=== PATIENT | male | born 1955 | race Caucasian/White ===

== ENCOUNTER → 2017-12-10 | Outpatient (CLI) | payer OTHER ==
--- NOTE | 2017-12-10 17:31 | 2DMMODE ---
[place] [address] 2 D/M-MODE ECHOCARDIOGRAM Name: SARAH CASTANEDA Room: [facility]#: [id number] Admission: 12/10/17 Attend Phys: Tete Johnson, Discharge: Date of : 59 Date of Service: 12/10/17 1731 Report #: [id number] THIS REPORT FOR: //name// APPROVED REPORT Study performed: 12/10/2017 15:13:41 EXAM: Comprehensive 2D, Doppler, and color-flow Echocardiogram Patient Location: Out-Patient Status: routine BSA: 1.63 HR: 97 bpm BP: 120/68 mmHg Other Information Study Quality: Technically Limited Technically limited study due to ribs close together. Indications Chemo 2D Dimensions LVEF(%): 77.72 (>50%) IVSd: 10.77 (7-11mm) LVOT Diam: 20.62 (18-24mm) LVDd: 35.89 mm PWd: 9.32 (7-11mm) Ascending Ao: 30.28 (22-36mm) LVDs: 19.57 (25-40mm) Aortic Root: 21.63 mm Alfred's LVEF: 77.72 % Volumes Left Atrial Volume (Systole) LA ESV Index: 6.80 mL/m2 Aortic Valve AoV Peak Theron.: 0.71 m/s AO Peak Gr.: 2.01 mmHg LVOT Max P.59 mmHg AO Mean Gr.: 1.20 mmHg LVOT Mean P.98 mmHg LVOT Max V: 0.63 m/s AO V2 VTI: 8.70 cm LVOT Mean V: 0.46 m/s MIKAL (VTI): 4.44 cm2 LVOT V1 VTI: 11.58 [place] [address] 2 D/M-MODE ECHOCARDIOGRAM Name: SARAH CASTANEDA Room: [facility]#: [id number] Admission: 12/10/17 Attend Phys: Tete Johnson, Discharge: Date of : 59 Date of Service: 12/10/17 1731 Report #: [id number] E/A Ratio: 0.44 MV Decel. Time: 66.30 ms MV E Max Theron.: 0.26 m/s MV PHT: 19.23 ms MVA (PHT): 11.44 cm2 TDI E/Lateral E': 4.33 E/Medial E': 4.33 Medial E' Theron.: 0.06 m/s Lateral E' Theron.: 0.06 m/s Pulmonary Valve PV Peak Theron.: 0.64 m/s PV Peak Gr.: 1.62 mmHg Left Ventricle The left ventricle is normal size. There is normal LV segmental wall motion. There is normal left ventricular wall thickness. Left ventricular systolic function is normal. The left ventricular ejection fraction is within the normal range. LVEF is 55-60%. Grade I - abnormal relaxation pattern. Right Ventricle The right ventricle is normal size. The right ventricular systolic function is normal. Atria The left atrium size is normal. The right atrium size is normal. Aortic Valve Mild aortic valve sclerosis. No aortic regurgitation is present. There is no aortic valvular stenosis. Mitral Valve The mitral valve is normal in structure. There is no mitral valve regurgitation noted. No evidence of mitral valve stenosis. Tricuspid Valve The tricuspid valve is normal in structure. There is no tricuspid valve regurgitation noted. Pulmonic Valve The pulmonary valve is normal in structure. There is no pulmonic valvular regurgitation[place] [address] 2 D/M-MODE ECHOCARDIOGRAM Name: CASTANEDASARAH Peña Room: [facility]#: [id number] Admission: 12/10/17 Attend Phys: Tete Johnson, Discharge: Date of : 59 Date of Service: 12/10/17 1731 Report #: [id number] The aortic root is normal in size. IVC is normal in size and collapses with >50% inspiration Pericardium There is no pericardial effusion. <Conclusion> The left ventricle is normal size. There is normal left ventricular wall thickness. Left ventricular systolic function is normal. The left ventricular ejection fraction is within the normal range. LVEF is 55-60%. Grade I - abnormal relaxation pattern. The right ventricle is normal size. Mild aortic valve sclerosis. There is no aortic valvular stenosis. The mitral valve is normal in structure. The tricuspid valve is normal in structure. IVC is normal in size and collapses with >50% inspiration There is no pericardial effusion. There is normal LV segmental wall motion. <ELECTRONICALLY SIGNED> By: Sarah Hinojosa MD, FACC 12/10/17 [id number] Sarah Hinojosa MD, FACC /INF
== END ==
LOC: M.CRD 14:46
DX: I35.8 Other nonrheumatic aortic valve disorders (principal)